=== PATIENT | male | born 1970 | race Caucasian/White ===

== ENCOUNTER 2018-03-29 12:48 | Inpatient (IN) ==
[2018-03-29 13:45] LABS: Hematocrit (blood only) 39.3 % (42-52); Hemoglobin 13.7 g/dL (14.0-18.0); Mean Corpuscular Hgb Conc 34.9 g/dL (32-36); Mean Corpuscular Volume 95.2 fL (80-100); RDW Coefficient of Variation 16.2 % (11.5-14.5); RDW Standard Deviation 56.4 fL (36.4-46.3); Red Blood Count 4.13 M/uL (4.7-6.1); White Blood Count 4.86 K/uL (4.8-10.8)
[2018-03-29 13:55] LABS: INR 1.2 (0.9-1.1); Partial Thromboplastin Ratio 1.1; Partial Thromboplastin Time 28.4 Seconds (21.0-31.0); Prothrombin Time 12.1 Seconds (9.0-12.0)
[2018-03-29 13:57] LABS: Albumin Level 3.2 gm/dl (3.4-5.0); BUN Creatinine Ratio 12.2 (10-20); Calcium 8.9 mg/dl (8.5-10.1); Creatinine Clr Calc Pharmacy 99.3 ml/min; Est GFR (African American) 123.1; Est GFR (Non-African American) 106.2; Potassium 4.2 mmol/L (3.5-5.1)
[2018-03-29 14:00] LABS: Albumin Globulin Ratio 0.8 (0.9-2); Bilirubin,Total 1.1 mg/dl (0.1-1); Total Protein 7.2 gm/dl (6.4-8.2)
[2018-03-29 14:18] LABS: Mean Platelet Volume 9.7 fL (7.4-10.4); Platelet Count 91 K/uL (130-400)
[2018-03-29] MEDS ORDERED: SODIUM CHLORIDE 0.9% 1000ML 1,000 ML IV ONE (14:32)
[2018-03-29] MEDS ORDERED: PANTOPRAZOLE BOLUS/DRIP 1 EA IV STA (14:47)
[2018-03-29] MEDS ORDERED: PANTOprazole 80 MG in DEXTROSE 5% 100 ML IV ONE (14:47)
[2018-03-29] MEDS: PANTOprazole 40 MG in DEXTROSE 5% 100 ML IV SCH ×2 (15:21→22:03)
--- NOTE | 2018-03-29 15:58 | Emergency Department Note ---
History of Present Illness General Chief complaint: Rectal Bleed Stated complaint: BLOODY EMESIS AND BLOODY DIARRHEA X4 Time Seen by Provider: 03/29/18 14:39 History of Present Illness Maximum Pain Intensity: 10 This patient is a 39-year-old white male that has history of GI bleed secondary to stomach issues as well as esophageal varices, comes in after having recurrence of bleeding this morning said he had 4 episodes of bright red blood per rectum as well as for bloody emesis. He has had no chest pain or shortness of breath. No fall or trauma. He has been admitted several times recently for this. He most recently had a EGD on 1216 which showed severe portal gastropathy without any active bleeding from varices they were still banded. He feels a little short of breath at times but no chest pain. No fever or chills. At present he appears to be resting comfortably. Home Medications Home Medications Medication Instructions Recorded Confirmed Type cholestyramine (with sugar) 4 g PO DAILY 02/24/18 03/29/18 History ciclesonide [Alvesco] 1 puff INHALATION BID 02/24/18 03/29/18 History duloxetine 30 mg PO HS 02/24/18 03/29/18 History fluoxetine 60 mg PO DAILY 02/24/18 03/29/18 History lamotrigine [Lamictal] 50 mg PO BID 02/24/18 03/29/18 History nadolol 40 mg PO DAILY 02/24/18 03/29/18 History spironolactone 100 mg PO DAILY 02/24/18 03/29/18 History topiramate 50 mg PO BID 02/24/18 03/29/18 History pantoprazole 40 mg PO QAM 60 Days #60 tab 02/26/18 03/29/18 Rx acetaminophen [Mapap 500 mg PO BID PRN #0 cap 03/22/18 03/29/18 Rx (acetaminophen)] ciprofloxacin HCl [Cipro] 500 mg PO DAILY 03/29/18 03/29/18 History levalbuterol tartrate [Xopenex HFA] 2 inh INHALATION TID PRN 03/29/18 03/29/18 History Allergies Allergy/AdvReac Type Severity Reaction Status Date / Time bee venom protein (honey bee) Allergy Severe Unconscious Verified 03/29/18 14:44 Penicillins Allergy Flushing Verified 03/29/18 14:44 Past Med/Surg History Medical History Thrombocytopenia Portal hypertension Acute blood loss anemia Cirrhosis Hepatitis C Bipolar 2 disorder Asthma Family History Mother , 2010 from [place] Heart attack Social History Current Living Situation: Other Current Living Situation Comment: correctional facility current occupational status: unemployed Other Information That Helps Us Care for You: No Feels Safe at Home: Yes Smoking Status: Current every day smoker Tobacco Type: cigarettes Cigarettes per Day: 20 Do You Dip or Chew Tobacco: No Tobacco Cessation Education Requested by Patient: No Hx Alcohol Use: No Hx Substance Use: No Beliefs That Will Affect Care: None Preferred Language: Sammarinese Communication Ability: Effective Joint Sealer Required: No Review of Systems See HPI for pertinent positives & negatives. and A total of 10 systems reviewed and were otherwise negative Physical Exam Vital Signs Vital Signs - 24 hr 03/29/18 13:00 03/29/18 13:35 03/29/18 13:36 Temperature 36.7 C Temperature Source Oral Sepsis Action Taken by Nursing No Action Required Pulse Rate 57 L 58 L Pulse Rate [Apical] 56 L Pulse Rhythm Regular Pulse Rhythm [Apical] Regular Pulse Strength [Apical] Normal Respiratory Rate 20 18 18 Respiratory Effort / Characteristics Non-Labored Spontaneous Non-Labored Spontaneous Respiratory Depth Normal Normal Respiratory Pattern Regular Blood Pressure 109/76 Blood Pressure [Right Arm] 97/63 L Blood Pressure Mean 87 Blood Pressure Mean [Right Arm] 74 Blood Pressure Position [Right Arm] Lying Pulse Oximetry 99 95 95 Oxygen Delivery Method Room Air Room Air Room Air 03/29/18 13:39 03/29/18 13:45 03/29/18 14:00 Temperature Temperature Source Sepsis Action Taken by Nursing Pulse Rate 56 L 56 L 55 L Pulse Rate [Apical] Pulse Rhythm Pulse Rhythm [Apical] Pulse Strength [Apical] Respiratory Rate 22 22 22 Respiratory Effort / Characteristics Respiratory Depth Respiratory Pattern Blood Pressure 97/63 L Blood Pressure [Right Arm] Blood Pressure Mean 74 Blood Pressure Mean [Right Arm] Blood Pressure Position [Right Arm] Pulse Oximetry 99 99 99 Oxygen Delivery Method Room Air Room Air Room Air 03/29/18 14:01 03/29/18 14:11 03/29/18 14:30 Temperature Temperature Source Sepsis Action Taken by Nursing Pulse Rate 55 L 52 L 57 L Pulse Rate [Apical] Pulse Rhythm Pulse Rhythm [Apical] Pulse Strength [Apical] Respiratory Rate 21 20 12 Respiratory Effort / Characteristics Respiratory Depth Respiratory Pattern Blood Pressure 85/55 L 100/61 Blood Pressure [Right Arm] Blood Pressure Mean 65 74 Blood Pressure Mean [Right Arm] Blood Pressure Position [Right Arm] Pulse Oximetry 98 99 98 Oxygen Delivery Method Room Air Room Air Room Air 03/29/18 14:31 03/29/18 14:32 03/29/18 15:00 Temperature Temperature Source Sepsis Action Taken by Nursing Pulse Rate 52 L 53 L 54 L Pulse Rate [Apical] Pulse Rhythm Pulse Rhythm [Apical] Pulse Strength [Apical] Respiratory Rate 22 21 22 Respiratory Effort / Characteristics Respiratory Depth Respiratory Pattern Blood Pressure 99/67 L Blood Pressure [Right Arm] Blood Pressure Mean 77 Blood Pressure Mean [Right Arm] Blood Pressure Position [Right Arm] Pulse Oximetry 100 100 100 Oxygen Delivery Method Room Air Room Air 03/29/18 15:11 03/29/18 15:30 03/29/18 15:31 Temperature Temperature Source Sepsis Action Taken by Nursing Pulse Rate 53 L 57 L 58 L Pulse Rate [Apical] Pulse Rhythm Pulse Rhythm [Apical] Pulse Strength [Apical] Respiratory Rate 16 21 20 Respiratory Effort / Characteristics Respiratory Depth Respiratory Pattern Blood Pressure 112/60 102/72 Blood Pressure [Right Arm] Blood Pressure Mean 77 82 Blood Pressure Mean [Right Arm] Blood Pressure Position [Right Arm] Pulse Oximetry 100 99 99 Oxygen Delivery Method Room Air Room Air Room Air 03/29/18 16:00 03/29/18 16:01 03/29/18 16:30 Temperature Temperature Source Sepsis Action Taken by Nursing Pulse Rate 56 L 59 L 54 L Pulse Rate [Apical] Pulse Rhythm Pulse Rhythm [Apical] Pulse Strength [Apical] Respiratory Rate 22 21 24 Respiratory Effort / Characteristics Respiratory Depth Respiratory Pattern Blood Pressure 100/63 Blood Pressure [Right Arm] Blood Pressure Mean 75 Blood Pressure Mean [Right Arm] Blood Pressure Position [Right Arm] Pulse Oximetry 99 99 98 Oxygen Delivery Method Room Air Room Air Room Air 03/29/18 16:31 03/29/18 16:32 03/29/18 17:00 Temperature Temperature Source Sepsis Action Taken by Nursing Pulse Rate 55 L 58 L 54 L Pulse Rate [Apical] Pulse Rhythm Pulse Rhythm [Apical] Pulse Strength [Apical] Respiratory Rate 23 12 19 Respiratory Effort / Characteristics Respiratory Depth Respiratory Pattern Blood Pressure 100/65 Blood Pressure [Right Arm] Blood Pressure Mean 76 Blood Pressure Mean [Right Arm] Blood Pressure Position [Right Arm] Pulse Oximetry 98 98 97 Oxygen Delivery Method Room Air Room Air 03/29/18 17:01 03/29/18 18:14 03/29/18 20:35 Temperature 36.7 C Temperature Source Oral Sepsis Action Taken by Nursing Pulse Rate 57 L Pulse Rate [Apical] 52 L Pulse Rhythm Pulse Rhythm [Apical] Regular Pulse Strength [Apical] Normal Respiratory Rate 19 20 Respiratory Effort / Characteristics Non-Labored Spontaneous Non-Labored Spontaneous Respiratory Depth Normal Normal Respiratory Pattern Regular Regular Blood Pressure 95/65 L Blood Pressure [Right Arm] 117/77 Blood Pressure Mean 75 Blood Pressure Mean [Right Arm] 90 Blood Pressure Position [Right Arm] Pulse Oximetry 97 100 Oxygen Delivery Method Room Air Room Air Room Air General: Well developed well nourished not ill-appearing middle-aged male who appears awake and alert answers all questions and in no acute distress, breathing comfortably on room air. Normal speech HEENT: Normal cephalic atraumatic. Pupils are equal round and reactive to light. Extraocular movements are intact. Oropharynx is pink with moist mucous membranes. No swelling of the mouth lips or tongue. Neck: Supple with a midline trachea. No meningeal signs or stiffness, no JVD or bruits. No Stridor. Chest: Clear to auscultation bilaterally. No wheezes or rhonchi. No increased work of breathing. Heart: Regular rate and rhythm without murmurs or gallops. Abdomen: Soft nontender, nondistended without rebound guarding or rigidity. Extremities: No cyanosis clubbing or edema. No calf tenderness or assymetry Spine/Back. Non tender to palpation. No CVA tenderness Skin: Good turgor without rashes. Neurologic exam: Cranial nerves two through 12 are intact. Motor and sensation are intact and symmetrical throughout. Course Administered Medications Duloxetine HCl (Cymbalta) 30 mg PO HS [facility] Stop: 04/28/18 20:59 Last Admin: 03/29/18 20:35 Dose: 30 mg Pantoprazole Sodium 40 mg/ (Dextrose) 100 mls @ 20 mls/hr IV Q5H [facility] Stop: 04/28/18 14:59 Last Admin: 03/29/18 15:21 Dose: 20 mls/hr Sodium Chloride (Nss 1000ml) 1,000 mls @ 80 mls/hr IV .[id number] [facility] Stop: 04/28/18 18:59 Last Admin: 03/29/18 18:40 Dose: 80 mls/hr Lamotrigine (Lamictal) 50 mg PO BID MILE Stop: 04/28/18 20:59 Last Admin: 03/29/18 20:35 Dose: 50 mg Topiramate (Topamax) 50 mg PO BID MILE Stop: 04/28/18 20:59 Last Admin: 03/29/18 20:34 Dose: 50 mg Discontinued Medications Sodium Chloride (Nss 1000ml) 1,000 mls @ 999 mls/hr IV .[id number] ONE Stop: 03/29/18 15:32 Last Infusion: 03/29/18 15:33 Dose: 0 mls/hr Admin: 03/29/18 14:33 Dose: 999 mls/hr Pantoprazole Sodium (Protonix Bolus/Drip) 0 mls @ 1 mls/hr IV ONE STA Stop: 03/29/18 14:48 Last Admin: 03/29/18 15:11 Dose: Not Given Pantoprazole Sodium 80 mg/ (Dextrose) 120 mls @ 400 mls/hr IV NOW ONE Stop: 03/29/18 15:04 Last Infusion: 03/29/18 15:23 Dose: 0 mls/hr Admin: 03/29/18 15:05 Dose: 400 mls/hr Medical Decision Making Differential Diagnosis Differential diagnosis includes: GI bleed, esophageal varices, peptic ulcer disease, anemia, trauma, infection, electrolyte or metabolic abnormality Medical Records Attestation: I reviewed the patient's medical records. Home Medications Current Medication List: was personally reviewed by me Laboratory Data Attestation: I reviewed the patient's lab results. Result diagrams: 03/29/18 13:35 03/29/18 13:35 Lab Results 03/29/18 03/29/18 03/29/18 Range/Units 13:35 13:35 13:35 WBC 4.86 (4.8-10.8) K/uL RBC 4.13 L (4.7-6.1) M/uL Hgb 13.7 L (14.0-18.0) g/dL Hct 39.3 L (42-52) % MCV 95.2 (80-100) fL MCH 33.2 (25-34) pg MCHC 34.9 (32-36) g/dL RDW Std Deviation 56.4 H (36.4-46.3) fL RDW Coeff of Stacy 16.2 H (11.5-14.5) % Plt Count 91 L (130-400) K/uL MPV 9.7 (7.4-10.4) fL PT 12.1 H (9.0-12.0) Seconds INR 1.2 H (0.9-1.1) APTT 28.4 (21.0-31.0) Seconds PTT Ratio 1.1 Sodium 139 (136-145) mmol/L Potassium 4.2 (3.5-5.1) mmol/L Chloride 109 H (98-107) mmol/L Carbon Dioxide 24 (21-32) mmol/L Anion Gap 6.0 (3-11) BUN 10 (7-18) mg/dl Creatinine 0.79 (0.6-1.4) mg/dl Est Cr Clr Drug Dosing 99.3 ml/min Est GFR ( Amer) 123.1 Est GFR (Non-Af Amer) 106.2 BUN/Creatinine Ratio 12.2 (10-20) Glucose 79 (70-99) mg/dl Calcium 8.9 (8.5-10.1) mg/dl Total Bilirubin 1.1 H (0.1-1) mg/dl AST 25 (15-37) U/L ALT 26 (12-78) U/L Alkaline Phosphatase 84 (45-117) U/L Total Protein 7.2 (6.4-8.2) gm/dl Albumin 3.2 L (3.4-5.0) gm/dl Globulin 4.0 (2.5-4.0) gm/dl Albumin/Globulin Ratio 0.8 L (0.9-2) Blood Type Antibody Screen Crossmatch 03/29/18 Range/Units 15:05 WBC (4.8-10.8) K/uL RBC (4.7-6.1) M/uL Hgb (14.0-18.0) g/dL Hct (42-52) % MCV (80-100) fL MCH (25-34) pg MCHC (32-36) g/dL RDW Std Deviation (36.4-46.3) fL RDW Coeff of Stacy (11.5-14.5) % Plt Count (130-400) K/uL MPV (7.4-10.4) fL PT (9.0-12.0) Seconds INR (0.9-1.1) APTT (21.0-31.0) Seconds PTT Ratio Sodium (136-145) mmol/L Potassium (3.5-5.1) mmol/L Chloride (98-107) mmol/L Carbon Dioxide (21-32) mmol/L Anion Gap (3-11) BUN (7-18) mg/dl Creatinine (0.6-1.4) mg/dl Est Cr Clr Drug Dosing ml/min Est GFR ( Amer) Est GFR (Non-Af Amer) BUN/Creatinine Ratio (10-20) Glucose (70-99) mg/dl Calcium (8.5-10.1) mg/dl Total Bilirubin (0.1-1) mg/dl AST (15-37) U/L ALT (12-78) U/L Alkaline Phosphatase (45-117) U/L Total Protein (6.4-8.2) gm/dl Albumin (3.4-5.0) gm/dl Globulin (2.5-4.0) gm/dl Albumin/Globulin Ratio (0.9-2) Blood Type O Negative Antibody Screen NEGATIVE Crossmatch See Detail Blood Pressure Blood Pressure Findings: Normal blood pressure MDM Narrative This patient comes in as described above. He has a history of upper GI bleed secondary to stomach issues as well as esophageal varices and liver issues. He reportedly had blood from above and below that was bright red today. His blood pressures been mildly low in the 90s systolic however he is very slender. He is non-tachycardic. IV access established and blood work was obtained his hemoglobin is stable 13.7. His coags are mildly elevated but at baseline. His BUN is not elevated. His abdomen is benign. He was typed and crossed for possible transfusion. I did start him on Protonix IV bolus as well as a drip. I did have Blanco, from [facility], come and see him she does not feel that he needs Octreotide at this point but agrees with keep him on the Protonix. She did a rectal exam and he had brown hard stool that was guaiac and grossly negative. She does recommend we do observe him given his history and keep him n.p.o. after midnight in case they decide to do an upper GI study tomorrow. I have consulted with the [facility] hospitalist Dr. Pereira and they will see him in the ER for admission/observation. Impression & Plan Upper gastrointestinal hemorrhage, Esophageal varices, Liver disease, Portal hypertension Discharge Plan Visit Data *Final* Discharge Date/Time: 03/29/18 17:26 Chief Complaint: Rectal Bleed Stated Complaint: BLOODY EMESIS AND BLOODY DIARRHEA X4 ED Provider: Jhon Galvez Discharge Problem: Upper gastrointestinal hemorrhage, Esophageal varices, Liver disease, Portal hypertension Patient Disposition: Still a Patient Discharge Instructions Interventions: ED Discharge Assessment Last Done: 03/29/18 17:26
--- NOTE | 2018-03-29 15:59 | History & Physical Report ---
Date of Service March 29, 2018 Assessment & Plan (1) Hematemesis: will make NPO, Protonix drip GI will re-evaluate for EGD tomorrow history of esophageal varices heme negative in the ED no signs that this is brisk bleed from esophageal varices, heme negative, vitals stable repeat H/H in the morning, discuss with GI about possible EGD (2) Cirrhosis: managed outpatient by [facility] takes Cholestyramine, nadolol, Aldactone normally mental status is clear, no need to check ammonia level (3) Hepatitis C: again, follows with GI outpatient (4) Esophageal varices: no signs that this is brisk bleed GI will evaluate tomorrow (5) Portal hypertension: (6) Thrombocytopenia: platelets low at 91k will continue to monitor History of Present Illness Chief Complaint: I've vomited too many times to count Primary Care Provider: OSCAR Sebastian 47 yo male with history of cirrhosis due to Hepatitis C, complicated by portal hypertension and esophageal varices. History of recent esophageal bleeding, varices were banded. He returned with more episodes of hematemesis on prior admission. EGD at that time showed some ulcers were the varices had been located. The patient had hematemesis at 5am this morning, was not witnessed by [facility] staff. He said he vomited several times and it was nearly all blood. No melena seen. Mild abdominal pain but it was after he vomited. Appetite is normal. He was seen by GI in the ED, recommended following Hb and possible EGD tomorrow, can have clears. Heme occult negative stool in the ED. Hb stabe at 13. Vitals stable. Asked to admit for recurrent hematemesis. Allergies Allergy/AdvReac Type Severity Reaction Status Date / Time bee venom protein (honey bee) Allergy Severe Unconscious Verified 03/29/18 14:44 Penicillins Allergy Flushing Verified 03/29/18 14:44 Home Medications Home Medications Medication Instructions Recorded Confirmed Type cholestyramine (with sugar) 4 g PO DAILY 02/24/18 03/29/18 History ciclesonide [Alvesco] 1 puff INHALATION BID 02/24/18 03/29/18 History duloxetine 30 mg PO HS 02/24/18 03/29/18 History fluoxetine 60 mg PO DAILY 02/24/18 03/29/18 History lamotrigine [Lamictal] 50 mg PO BID 02/24/18 03/29/18 History nadolol 40 mg PO DAILY 02/24/18 03/29/18 History spironolactone 100 mg PO DAILY 02/24/18 03/29/18 History topiramate 50 mg PO BID 02/24/18 03/29/18 History pantoprazole 40 mg PO QAM 60 Days #60 tab 02/26/18 03/29/18 Rx acetaminophen [Mapap 500 mg PO BID PRN #0 cap 03/22/18 03/29/18 Rx (acetaminophen)] ciprofloxacin HCl [Cipro] 500 mg PO DAILY 03/29/18 03/29/18 History levalbuterol tartrate [Xopenex HFA] 2 inh INHALATION TID PRN 03/29/18 03/29/18 History Past Med/Surg History Medical History Thrombocytopenia Portal hypertension Acute blood loss anemia Cirrhosis Hepatitis C Bipolar 2 disorder Asthma Family History Mother , 2010 from [place] Heart attack Social History Current Living Situation: Other Current Living Situation Comment: correctional facility current occupational status: unemployed Other Information That Helps Us Care for You: No Feels Safe at Home: Yes Smoking Status: Current every day smoker Tobacco Type: cigarettes Cigarettes per Day: 20 Do You Dip or Chew Tobacco: No Tobacco Cessation Education Requested by Patient: No Hx Alcohol Use: No Hx Substance Use: No Beliefs That Will Affect Care: None Preferred Language: Croatian Communication Ability: Effective Laborer Golf Course Required: No Review of Systems All systems reviewed & are unremarkable except as noted in HPI & below Gastrointestinal: + abdominal pain, + nausea, + vomiting and + hematemesis; no constipation and no diarrhea/loose stools Physical Exam 2 Vital Signs (Past 24 Hours): Last Vital Signs Temp 36.7 C 03/29/18 13:00 Pulse 53 L 03/29/18 15:11 Resp 16 03/29/18 15:11 BP 112/60 03/29/18 15:11 Pulse Ox 100 03/29/18 15:11 Constitutional: WD/WN, vitals as above Eyes: PERRL, conjunctivae normal, anicteric sclerae ENMT: external ear and nose normal, oropharynx normal Neck: trachea midline, no thyromegaly Respiratory: normal respiratory effort, lungs clear to auscultation Cardiovascular: RRR, no murmur, no edema Gastrointestinal (Abdomen): normal bowel sounds, soft, nontender, no hepatosplenomegaly Musculoskeletal: no cyanosis or clubbing, extremities motor strength 5/5 Skin: no rashes, warm and dry Neurologic: patellar DTR's 2+ bilat, sensation intact Psychiatric: A+Ox3, euthymic affect Lymphatic: no cervical or axillary lymphadenopathy Results & Data Laboratory Results Laboratory Results - last 24 hr 03/29/18 03/29/18 03/29/18 13:35 13:35 13:35 WBC 4.86 RBC 4.13 L Hgb 13.7 L Hct 39.3 L MCV 95.2 MCH 33.2 MCHC 34.9 RDW Std Deviation 56.4 H RDW Coeff of Stacy 16.2 H Plt Count 91 L MPV 9.7 PT 12.1 H INR 1.2 H APTT 28.4 PTT Ratio 1.1 Sodium 139 Potassium 4.2 Chloride 109 H Carbon Dioxide 24 Anion Gap 6.0 BUN 10 Creatinine 0.79 Est Cr Clr Drug Dosing 99.3 Est GFR ( Amer) 123.1 Est GFR (Non-Af Amer) 106.2 BUN/Creatinine Ratio 12.2 Glucose 79 Calcium 8.9 Total Bilirubin 1.1 H AST 25 ALT 26 Alkaline Phosphatase 84 Total Protein 7.2 Albumin 3.2 L Globulin 4.0 Albumin/Globulin Ratio 0.8 L Blood Type Antibody Screen Crossmatch 03/29/18 15:05 WBC RBC Hgb Hct MCV MCH MCHC RDW Std Deviation RDW Coeff of Stacy Plt Count MPV PT INR APTT PTT Ratio Sodium Potassium Chloride Carbon Dioxide Anion Gap BUN Creatinine Est Cr Clr Drug Dosing Est GFR ( Amer) Est GFR (Non-Af Amer) BUN/Creatinine Ratio Glucose Calcium Total Bilirubin AST ALT Alkaline Phosphatase Total Protein Albumin Globulin Albumin/Globulin Ratio Blood Type O Negative Antibody Screen NEGATIVE Crossmatch See Detail Medications Administered Current Inpatient Medications Ciprofloxacin (Cipro) 500 mg PO DAILY [facility] Stop: 04/09/18 08:59 Duloxetine HCl (Cymbalta) 30 mg PO HS [facility] Stop: 04/28/18 20:59 Last Admin: 03/29/18 20:35 Dose: 30 mg Fluoxetine HCl (Prozac) 60 mg PO DAILY [facility] Stop: 04/29/18 08:59 Pantoprazole Sodium 40 mg/ (Dextrose) 100 mls @ 20 mls/hr IV Q5H [facility] Stop: 04/28/18 14:59 Last Admin: 03/29/18 22:03 Dose: 20 mls/hr Sodium Chloride (Nss 1000ml) 1,000 mls @ 80 mls/hr IV .[id number] [facility] Stop: 04/28/18 18:59 Last Admin: 03/29/18 18:40 Dose: 80 mls/hr Lamotrigine (Lamictal) 50 mg PO BID [facility] Stop: 04/28/18 20:59 Last Admin: 03/29/18 20:35 Dose: 50 mg Levalbuterol HCl (Xopenex Hfa) 1 puffs INH TID PRN PRN Reason: Shortness Of Breath Stop: 04/28/18 17:50 Miscellaneous (Order Awaiting Action) 1 ea N/A QS [facility] Stop: 04/29/18 00:00 Last Admin: 03/29/18 23:59 Dose: Not Given Miscellaneous (Remove Nicoderm Patch) 1 ea N/A HS PRN PRN Reason: insomnia Stop: 04/28/18 20:59 Morphine Sulfate (Morphine Sulfate) 2 mg IV Q6H PRN PRN Reason: Pain Stop: 04/12/18 21:40 Last Admin: 03/29/18 22:03 Dose: 2 mg Nadolol (Corgard) 40 mg PO DAILY [facility] Stop: 04/29/18 08:59 Nicotine (Nicoderm Cq) 21 mg TD QAM [facility] Stop: 04/28/18 21:59 Last Admin: 03/29/18 22:30 Dose: 21 mg Ondansetron HCl (Zofran) 4 mg IV Q6H PRN PRN Reason: Nausea Stop: 04/28/18 17:50 Spironolactone (Aldactone) 100 mg PO DAILY [facility] Stop: 04/29/18 08:59 Topiramate (Topamax) 50 mg PO BID [facility] Stop: 04/28/18 20:59 Last Admin: 03/29/18 20:34 Dose: 50 mg Code Status & VTE Plan Code Status full code VTE Prophylaxis Plan VTE Prophylaxis will be ordered: Yes _ (1) Esophageal varices Esophageal varices bleeding: with bleeding Esophageal varices type: unspecified type Qualified Code(s): I85.01 - Esophageal varices with bleeding
--- NOTE | 2018-03-29 16:10 | Gastrointestinal Consultation ---
Date of Consultation March 29, 2018 Assessment & Plan (1) Cirrhosis: Present on Admission?: Yes (2) Hepatitis C: History of HCV reportedly treated? Present on Admission?: Yes (3) Hematemesis: Pt is a 47 y/o male inmate who reported having hematemesis and BRBPR diarrhea at 5A this morning, associated w abd pain. Events were unwitnessed and he hasn't had any emesis or stools since taken to ED. Hx of HCV cirrhosis, portal HTN, esophageal varices that were banded 02/25, recently admitted for coffee ground emesis and repeat EGD on 03/19 showed almost eradicated varices but he has post banding ulcers. Labs showed very mild anemia, normal BUN/Cr. Rectal exam w brown specks of stools w/o residue of bleeding. Less likely he's having active GI bleeding from ulcers or varices. Though reasonable to keep him overnight for observation, and possibly perform EGD tomorrow if having more signs of bleeding or if worsening anemia. - CL diet today,NPO after midnight - Tenatively plan for EGD by Dr. Kumar on 03/30 - PPI bolus and gtt - Monitor H/H. Attg add: I interviewed and examined pt, reviewed chart and labs. Pt iwth cirrhosis, varices s/p recent EGD, now admit with possible UGIB. Will follow hgb overnight, plan to scope if he has sig hgb drop. Present on Admission?: Yes History of Present Illness Reason for Consultation: Bloody emesis, diarrhea Requesting Physician: Dr. Jhon Galvez Attending Physician: Dr. Martin Kumar History of Present Illness Pt is a 47 y/o male inmate PMHx of HCV cirrhosis , bipolar, asthma, who was taken to ED after reportedly having red bloody emesis and liquid stools at 5A. He reports 4 episodes of n/v/diarrhea till about 6:30A, cannot tolerate to eat breakfast. Only took sips of black coffee and threw up again. He reports associated diffuse abd pain. Denies fever, chills, CP, SOB. Does report a bit of light headedness, no falls. On eval in ED, BP a bit soft 80s/40s. Improved to 112/60 after 1L NS bolus. H/H 13.7/39, INR 1.2, Plt 91. BUN/Cr 10/0.79He had hx of portal HTN and esophageal varices, s/p banding 02/25/18. Was admitted a couple of weeks ago w reported coffee ground emesis, repeat EGD on 03/19/18 showed almost eradicated varices, grade I, there are post banding ulcers present. U/s doppler w/o signs of PVT. Allergies Allergy/AdvReac Type Severity Reaction Status Date / Time bee venom protein (honey bee) Allergy Severe Unconscious Verified 03/29/18 14:44 Penicillins Allergy Flushing Verified 03/29/18 14:44 Home Medications Home Medications Medication Instructions Recorded Confirmed Type cholestyramine (with sugar) 4 g PO DAILY 02/24/18 04/10/18 History ciclesonide [Alvesco] 1 puff INHALATION BID 02/24/18 04/10/18 History duloxetine 30 mg PO HS 02/24/18 04/10/18 History fluoxetine 60 mg PO DAILY 02/24/18 04/10/18 History lamotrigine [Lamictal] 50 mg PO BID 02/24/18 04/10/18 History nadolol 40 mg PO DAILY 02/24/18 04/10/18 History spironolactone 100 mg PO DAILY 02/24/18 04/10/18 History topiramate 50 mg PO BID 02/24/18 04/10/18 History pantoprazole 40 mg PO QAM 60 Days #60 tab 02/26/18 04/10/18 Rx ciprofloxacin HCl [Cipro] 500 mg PO DAILY 03/29/18 04/10/18 History levalbuterol tartrate [Xopenex HFA] 2 inh INHALATION TID PRN 03/29/18 04/10/18 History Patient History Medical History Thrombocytopenia Portal hypertension Acute blood loss anemia Cirrhosis Hepatitis C Bipolar 2 disorder Asthma Family History Mother , 2010 from [place] Heart attack Social History Current Living Situation: Other Current Living Situation Comment: correctional facility current occupational status: unemployed Feels Safe at Home: Yes Smoking Status: Current every day smoker Tobacco Type: cigarettes Hx Alcohol Use: No Hx Substance Use: No Beliefs That Will Affect Care: None Preferred Language: Welsh Review of Systems Constitutional: as per Subjective / HPI Respiratory: no cough and no dyspnea Cardiovascular: no chest pain Gastrointestinal: as per Subjective / HPI Physical Exam 2 Vital Signs (Past 24 Hours): Last Vital Signs Temp 36.7 C 03/29/18 13:00 Pulse 53 L 03/29/18 15:11 Resp 16 03/29/18 15:11 BP 112/60 03/29/18 15:11 Pulse Ox 100 03/29/18 15:11 Constitutional: WD/WN, vitals as above well groomed, cooperative and comfortable Eyes: PERRL, conjunctivae normal, anicteric sclerae ENMT: external ear and nose normal, oropharynx normal Respiratory: normal respiratory effort, lungs clear to auscultation Cardiovascular: RRR, no murmur, no edema Gastrointestinal (Abdomen): normal bowel sounds, soft, nontender, no hepatosplenomegaly Rectal Exam: no rectal mass and no hemorrhoids speck of brown stool present, no signs of blood residue Skin: no rashes, warm and dry no jaundice Neurologic: Motor/Sensory: no asterixis Psychiatric: A+Ox3, euthymic affect Lymphatic: no lymphedema Results & Data Laboratory Results Laboratory Results - last 48 hr 03/29/18 03/29/18 03/29/18 13:35 13:35 13:35 WBC 4.86 RBC 4.13 L Hgb 13.7 L Hct 39.3 L MCV 95.2 MCH 33.2 MCHC 34.9 RDW Std Deviation 56.4 H RDW Coeff of Stacy 16.2 H Plt Count 91 L MPV 9.7 PT 12.1 H INR 1.2 H APTT 28.4 PTT Ratio 1.1 Sodium 139 Potassium 4.2 Chloride 109 H Carbon Dioxide 24 Anion Gap 6.0 BUN 10 Creatinine 0.79 Est Cr Clr Drug Dosing 99.3 Est GFR ( Amer) 123.1 Est GFR (Non-Af Amer) 106.2 BUN/Creatinine Ratio 12.2 Glucose 79 Calcium 8.9 Total Bilirubin 1.1 H AST 25 ALT 26 Alkaline Phosphatase 84 Total Protein 7.2 Albumin 3.2 L Globulin 4.0 Albumin/Globulin Ratio 0.8 L Crossmatch 03/29/18 15:05 WBC RBC Hgb Hct MCV MCH MCHC RDW Std Deviation RDW Coeff of Stacy Plt Count MPV PT INR APTT PTT Ratio Sodium Potassium Chloride Carbon Dioxide Anion Gap BUN Creatinine Est Cr Clr Drug Dosing Est GFR ( Amer) Est GFR (Non-Af Amer) BUN/Creatinine Ratio Glucose Calcium Total Bilirubin AST ALT Alkaline Phosphatase Total Protein Albumin Globulin Albumin/Globulin Ratio Crossmatch See Detail
[2018-03-29] MEDS ORDERED: ONDANSETRON INJ 2 MG/ML 2 ML VIAL IV PRN (17:51)
[2018-03-29] MEDS ORDERED: LEVALBUTEROL TARTRATE 15 GM HFA.AER.AD INH PRN (17:51)
[2018-03-29] MEDS: SODIUM CHLORIDE 0.9% 1000ML 1,000 ML IV SCH (18:40)
[2018-03-29] MEDS ORDERED: INFLUENZA ADMINISTRATION CHARGE ONE (18:45)
[2018-03-29] MEDS ORDERED: INFLUENZA VIRUS QUAD VACCINE 0.5 ML SYR IM ONE (18:45)
[2018-03-29] MEDS: TOPIRAMATE 50 MG TAB PO SCH (20:34)
[2018-03-29] MEDS: lamoTRIgine 25 MG TAB PO SCH (20:35)
[2018-03-29] MEDS ORDERED: DULOXETINE HCL 30 MG CAP PO SCH (21:00)
[2018-03-29] MEDS: MoRPHine SULFATE 2 MG/ML CARP IV PRN (22:03)
[2018-03-29] MEDS: NICOTINE 21 MG/24 HR TDSY TD SCH (22:30)
[2018-03-30] MEDS: PANTOprazole 40 MG in DEXTROSE 5% 100 ML IV SCH ×2 (03:13→09:42)
[2018-03-30 04:23] VITALS: TEMP 98.2
[2018-03-30] MEDS: MoRPHine SULFATE 2 MG/ML CARP IV PRN (05:44)
[2018-03-30] MEDS: SODIUM CHLORIDE 0.9% 1000ML 1,000 ML IV SCH (05:50)
[2018-03-30 07:31] VITALS: BP 102/61; PULSE 58; O2SAT 98
[2018-03-30 08:07] LABS: Hematocrit (blood only) 37.5 % (42-52); Hemoglobin 13.2 g/dL (14.0-18.0); Mean Corpuscular Hgb Conc 35.2 g/dL (32-36); Mean Corpuscular Volume 94.5 fL (80-100); RDW Coefficient of Variation 15.9 % (11.5-14.5); RDW Standard Deviation 55.1 fL (36.4-46.3); Red Blood Count 3.97 M/uL (4.7-6.1); White Blood Count 4.71 K/uL (4.8-10.8)
[2018-03-30 08:10] LABS: Mean Platelet Volume 9.2 fL (7.4-10.4); Platelet Count 54 K/uL (130-400)
[2018-03-30 08:37] LABS: Basophils # (auto) 0.02 K/uL (0-0.2); Basophils % (auto) 0.4 %; Eosinophils # (auto) 0.19 K/uL (0-0.5); Immature Granulocytes # (auto) 0.01 K/uL (0.00-0.02); Immature Granulocytes % (auto) 0.2 %; Lymphocytes # (auto) 0.42 K/uL (1.2-3.4); Lymphocytes % (auto) 8.9 %; Monocytes # (auto) 0.46 K/uL (0.11-0.59); Monocytes % (auto) 9.8 %; Neutrophils # (auto) 3.61 K/uL (1.4-6.5); Neutrophils % (auto) 76.7 %
[2018-03-30 08:41] LABS: BUN Creatinine Ratio 8.9 (10-20); Calcium 8.6 mg/dl (8.5-10.1); Est GFR (African American) 121.8; Est GFR (Non-African American) 105.1; Potassium 3.7 mmol/L (3.5-5.1)
[2018-03-30 08:44] LABS: Albumin Globulin Ratio 0.8 (0.9-2); Bilirubin,Total 1.2 mg/dl (0.1-1); Globulin 3.7 gm/dl (2.5-4.0); Total Protein 6.7 gm/dl (6.4-8.2)
[2018-03-30] MEDS ORDERED: FLUOXETINE HCL 20 MG CAP PO SCH (09:00)
[2018-03-30] MEDS ORDERED: SPIRONOLACTONE 100 MG TAB PO SCH (09:00)
[2018-03-30] MEDS ORDERED: NADOLOL 40 MG TAB PO SCH (09:00)
[2018-03-30] MEDS ORDERED: CIPROFLOXACIN 500 MG TAB PO SCH (09:00)
[2018-03-30] MEDS: lamoTRIgine 25 MG TAB PO SCH (09:37)
[2018-03-30] MEDS: TOPIRAMATE 50 MG TAB PO SCH (09:37)
[2018-03-30] MEDS: NICOTINE 21 MG/24 HR TDSY TD SCH (09:37)
--- NOTE | 2018-03-30 10:13 | Gastroenterology Progress Note ---
Date of Service March 30, 2018 Assessment & Plan (1) Cirrhosis: 47 y/o male w/ report of hematemesis and BRBPR diarrhea at 5A yesterday AM - events were unwitnessed and he hasn't had any emesis or stools since taken to ED. Hx of HCV cirrhosis, portal HTN, esophageal varices that were banded , recently admitted for coffee ground emesis and repeat EGD on 03/19 showed almost eradicated varices but he has post banding ulcers. Labs and vital signs were stable overnight. He is hungry, wants to eat. - GI ok for diet as there is no signs of active bleeding - If stable, consider discharge back to facility today - GI to watch peripherally. Thank you for allowing us to participate in the care of this patient. Please call with any acute changes, questions or concerns. Please see addendum below with additional recommendation from my supervising physician. Attg add: I interviewed and examined pt, reviewed chart and labs. Pt asymptomatic with normal hgb - no need to repeat EGD. OK for dc. (2) Hepatitis C: (3) Hematemesis: Subjective Pt was seen and evaluated, chart reviewed. Two guards at bedside. Notes he feels well. Wants to eat and go. No abd pain. No further episodes of vomiting. Notes he had a dark stool overnight. No BRBPR. Denies coffee ground emesis or hematemsis. VSS, HGB stable. No fever, chills, CP, SOB. Recent EGD w/ HTN gastropathy but w/o varices. There were small ulcers at prior banding location Constitutional: no fever and no chills Respiratory: no cough, no dyspnea and no wheezing Cardiovascular: no chest pain, no radiating jaw, neck or arm pain and no claudication Gastrointestinal: no abdominal pain, no belching, no bloating, no early satiety , no heartburn, no nausea, no vomiting, no coffee ground emesis, no hematemesis , no pain with swallowing, no dysphagia, no cramping, no excessive flatulence, no change in stools, no constipation, no fecal incontinence, no constant urge to pass stools, no blood in stools, no melena and no problem reported Physical Exam 2 Vital Signs (Past 24 Hours): Last Vital Signs Temp 36.8 C 03/30/18 09:54 Pulse 58 L 03/30/18 09:54 Resp 18 03/30/18 09:54 BP 102/61 03/30/18 09:54 Pulse Ox 98 03/30/18 09:54 Constitutional: well developed, well nourished, cooperative and comfortable; no acute distress and not combative Respiratory: normal respiratory effort, lungs clear to auscultation Cardiovascular: RRR, no murmur, no edema Gastrointestinal (Abdomen): normal bowel sounds, soft, nontender, no hepatosplenomegaly Skin: no rashes, warm and dry Results & Data Laboratory Results 03/30/18 03/30/18 03/29/18 Range/Units 07:58 07:58 15:05 WBC 4.71 L (4.8-10.8) K/uL RBC 3.97 L (4.7-6.1) M/uL Hgb 13.2 L (14.0-18.0) g/dL Hct 37.5 L (42-52) % MCV 94.5 (80-100) fL MCH 33.2 (25-34) pg MCHC 35.2 (32-36) g/dL RDW Std Deviation 55.1 H (36.4-46.3) fL RDW Coeff of Stacy 15.9 H (11.5-14.5) % Plt Count 54 L (130-400) K/uL MPV 9.2 (7.4-10.4) fL Immature Gran % (Auto) 0.2 % Neut % (Auto) 76.7 % Lymph % (Auto) 8.9 % Grundy % (Auto) 9.8 % Eos % (Auto) 4.0 % Baso % (Auto) 0.4 % Immature Gran # (Auto) 0.01 (0.00-0.02) K/uL Neut # (Auto) 3.61 (1.4-6.5) K/uL Lymph # (Auto) 0.42 L (1.2-3.4) K/uL Grundy # (Auto) 0.46 (0.11-0.59) K/uL Eos # (Auto) 0.19 (0-0.5) K/uL Baso # (Auto) 0.02 (0-0.2) K/uL PT (9.0-12.0) Seconds INR (0.9-1.1) APTT (21.0-31.0) Seconds PTT Ratio Sodium 139 (136-145) mmol/L Potassium 3.7 (3.5-5.1) mmol/L Chloride 110 H (98-107) mmol/L Carbon Dioxide 22 (21-32) mmol/L Anion Gap 7.0 (3-11) BUN 7 (7-18) mg/dl Creatinine 0.81 (0.6-1.4) mg/dl Est Cr Clr Drug Dosing 92.0 ml/min Est GFR ( Amer) 121.8 Est GFR (Non-Af Amer) 105.1 BUN/Creatinine Ratio 8.9 L (10-20) Glucose 93 (70-99) mg/dl Calcium 8.6 (8.5-10.1) mg/dl Total Bilirubin 1.2 H (0.1-1) mg/dl AST 18 (15-37) U/L ALT 23 (12-78) U/L Alkaline Phosphatase 69 (45-117) U/L Total Protein 6.7 (6.4-8.2) gm/dl Albumin 3.0 L (3.4-5.0) gm/dl Globulin 3.7 (2.5-4.0) gm/dl Albumin/Globulin Ratio 0.8 L (0.9-2) Blood Type O Negative Antibody Screen NEGATIVE Crossmatch See Detail 03/29/18 03/29/18 03/29/18 Range/Units 13:35 13:35 13:35 WBC 4.86 (4.8-10.8) K/uL RBC 4.13 L (4.7-6.1) M/uL Hgb 13.7 L (14.0-18.0) g/dL Hct 39.3 L (42-52) % MCV 95.2 (80-100) fL MCH 33.2 (25-34) pg MCHC 34.9 (32-36) g/dL RDW Std Deviation 56.4 H (36.4-46.3) fL RDW Coeff of Stacy 16.2 H (11.5-14.5) % Plt Count 91 L (130-400) K/uL MPV 9.7 (7.4-10.4) fL Immature Gran % (Auto) % Neut % (Auto) % Lymph % (Auto) % Grundy % (Auto) % Eos % (Auto) % Baso % (Auto) % Immature Gran # (Auto) (0.00-0.02) K/uL Neut # (Auto) (1.4-6.5) K/uL Lymph # (Auto) (1.2-3.4) K/uL Grundy # (Auto) (0.11-0.59) K/uL Eos # (Auto) (0-0.5) K/uL Baso # (Auto) (0-0.2) K/uL PT 12.1 H (9.0-12.0) Seconds INR 1.2 H (0.9-1.1) APTT 28.4 (21.0-31.0) Seconds PTT Ratio 1.1 Sodium 139 (136-145) mmol/L Potassium 4.2 (3.5-5.1) mmol/L Chloride 109 H (98-107) mmol/L Carbon Dioxide 24 (21-32) mmol/L Anion Gap 6.0 (3-11) BUN 10 (7-18) mg/dl Creatinine 0.79 (0.6-1.4) mg/dl Est Cr Clr Drug Dosing 99.3 ml/min Est GFR ( Amer) 123.1 Est GFR (Non-Af Amer) 106.2 BUN/Creatinine Ratio 12.2 (10-20) Glucose 79 (70-99) mg/dl Calcium 8.9 (8.5-10.1) mg/dl Total Bilirubin 1.1 H (0.1-1) mg/dl AST 25 (15-37) U/L ALT 26 (12-78) U/L Alkaline Phosphatase 84 (45-117) U/L Total Protein 7.2 (6.4-8.2) gm/dl Albumin 3.2 L (3.4-5.0) gm/dl Globulin 4.0 (2.5-4.0) gm/dl Albumin/Globulin Ratio 0.8 L (0.9-2) Blood Type Antibody Screen Crossmatch
--- NOTE | 2018-04-06 22:01 | Discharge Summary ---
Date of Service March 30, 2018 Admission HPI Per Admitting Provider 47 yo male with history of cirrhosis due to Hepatitis C, complicated by portal hypertension and esophageal varices. History of recent esophageal bleeding, varices were banded. He returned with more episodes of hematemesis on prior admission. EGD at that time showed some ulcers were the varices had been located. The patient had hematemesis at 5am this morning, was not witnessed by [facility] staff. He said he vomited several times and it was nearly all blood. No melena seen. Mild abdominal pain but it was after he vomited. Appetite is normal. He was seen by GI in the ED, recommended following Hb and possible EGD tomorrow, can have clears. Heme occult negative stool in the ED. Hb stabe at 13. Vitals stable. Asked to admit for recurrent hematemesis. Principal Diagnosis Hematemesis Discharge Exam Constitutional WD/WN, vitals as above Eyes PERRL, conjunctivae normal, anicteric sclerae ENMT external ear and nose normal, oropharynx normal Neck trachea midline, no thyromegaly Respiratory normal respiratory effort, lungs clear to auscultation Cardiovascular RRR, no murmur, no edema Gastrointestinal (Abdomen) normal bowel sounds, soft, nontender, no hepatosplenomegaly Musculoskeletal no cyanosis or clubbing, extremities motor strength 5/5 Skin no rashes, warm and dry Neurologic patellar DTR's 2+ bilat, sensation intact Psychiatric A+Ox3, euthymic affect Lymphatic no cervical or axillary lymphadenopathy Discharge Data Allergies Allergy/AdvReac Type Severity Reaction Status Date / Time bee venom protein (honey bee) Allergy Severe Unconscious Verified 03/29/18 14:44 Penicillins Allergy Flushing Verified 03/29/18 14:44 Consultations 03/29/18 15:48 ED Decision to Admit Stat 03/29/18 17:51 Consult Gastroenterology Routine Procedures Performed Operation Date: 03/30/18 09:00 <No data on this case meets the specified criteria> Hospital Course (1) Hematemesis: reported hematemesis, no vomiting for over 24 hours on admission was NPO, Protonix drip history of esophageal varices heme negative in the ED no signs that this is brisk bleed from esophageal varices, heme negative, vitals stable Hb stable in the morning, no further vomiting per GI can go back to [facility], follow up outpatient (2) Cirrhosis: managed outpatient by [facility] Gastroenterology takes Cholestyramine, nadolol, Aldactone normally mental status is clear, no need to check ammonia level (3) Hepatitis C: again, follows with GI outpatient (4) Esophageal varices: no signs that this is brisk bleed no need for EGD per GI since he did not vomit for over 24 hours Hb stable Heme occult negative on rectal exam (5) Portal hypertension: (6) Thrombocytopenia: platelets low at 91k chronic issue due to cirrhosis Total Time Total Time Spent Total Time Spent (In Minutes): 20 minutes Total Time Includes: Examination of the Patient, Discharge Planning, Medication Reconciliation and Communication With Other Providers Discharge Plan Discharge Items Patient Disposition: [facility] Reason For Visit: HEMATEMESIS Discharge Diagnosis: Hematemesis, resolved No anemia, Hb 13 Condition: Good Discharge Goals: Improve disease control and Improve function Activity: Resume your previous activity Non-emergency contact: Primary Care Provider and Assayer Helper Call non-emergency contact if: you have any medication questions, your symptoms worsen and you have a fever Diet: Regular Diet Texture: Dental soft (bite-sized) Addtl Provider Instructions: Reported hematemesis: no vomiting while admitted Hemoglobin stable at 13.7 and 13.2 heme occult negative on rectal exam no EGD per gastroenterology, recommend continuing current therapy discharge to [facility] Prescriptions: Continue spironolactone 100 mg Tablet 100 mg PO DAILY RF: 0 lamotrigine [Lamictal] 25 mg Tablet 50 mg PO BID RF: 0 nadolol 40 mg Tablet 40 mg PO DAILY RF: 0 fluoxetine 20 mg Capsule 60 mg PO DAILY RF: 0 cholestyramine (with sugar) 4 gram Powder In Packet 4 g PO DAILY RF: 0 topiramate 50 mg Tablet 50 mg PO BID RF: 0 duloxetine 30 mg Capsule,Delayed Release(Dr/Ec) 30 mg PO HS RF: 0 ciclesonide [Alvesco] 160 mcg/actuation Hfa Aerosol Inhaler 1 puff INHALATION BID RF: 0 pantoprazole 40 mg Tablet,Delayed Release (Dr/Ec) 40 mg PO QAM 60 Days Qty: 60 RF: 0 acetaminophen [Mapap (acetaminophen)] 500 mg Capsule 500 mg PO BID PRN (Reason: pain) Qty: 0 RF: 0 ciprofloxacin HCl [Cipro] 500 mg Tablet 500 mg PO DAILY RF: 0 levalbuterol tartrate [Xopenex HFA] 45 mcg/actuation Hfa Aerosol Inhaler 2 inh INHALATION TID PRN (Reason: Shortness Of Breath) RF: 0 Stand-Alone Forms: Counts Include [facility] Discharge Orders: Discharge Order (Routine); Ordered 03/30/18 Ordered By: Nato Kinney Admission Data Admit Date/Time: 03/29/18 15:57 Attending Provider: Nato Kinney Admit Provider: Nato Kinney Primary Care Provider: Romulo MOORE Other Providers: Martin Kumar Service: Telemetry Other Interventions: Discharge Summary Assessment (RN) Last Done: 03/30/18 09:54 DC Date/Time DO NOT enter until pt leaves facility: 03/30/18 11:24
== END 2018-03-30 11:24 | DRG 380 ==
LOC: ED 12:48 → 2W 15:57
DX: K92.0 Hematemesis; D64.9 Anemia, unspecified; K22.11 Ulcer of esophagus with bleeding; D69.6 Thrombocytopenia, unspecified; K76.6 Portal hypertension; B19.20 Unspecified viral hepatitis C without hepatic coma; Z88.0 Allergy status to penicillin; K74.69 Other cirrhosis of liver; K31.89 Other diseases of stomach and duodenum; F31.81 Bipolar II disorder; Z79.899 Other long term (current) drug therapy; Z91.030 Bee allergy status; F17.210 Nicotine dependence, cigarettes, uncomplicated; J45.909 Unspecified asthma, uncomplicated; I85.11 Secondary esophageal varices with bleeding